=== PATIENT | male | born 1950 | race Caucasian/White ===

== ENCOUNTER 2017-11-22 12:30 | Emergency (ER) | payer BC ==
[2017-11-22 14:01] VITALS: BP 109/47
--- NOTE | 2017-11-22 15:11 | UC ---
UC General HPI - HPI Summary HPI Summary: pt is c/o sinus congestion, throat tickle and cough with bodyqaches x 5 days with no improvement. he denies any cp, sob, hx lung disease - History of Current Complaint Chief Complaint: UCRespiratory Stated Complaint: COUGH, SINUSES Time Seen by Provider: 11/22/17 14:56 Hx Obtained From: Patient Onset/Duration: Gradual Onset Timing: Constant Pain Intensity: 0 Associated Signs & Symptoms: Positive: Cough. Negative: Chest Pain, Diarrhea, Dysuria, Fever, SOB, Wheezing Similar Episode/Dx as: sinus infection and frequent secondary lung infection with both needing antibiotics - Allergy/Home Medications Allergies/Adverse Reactions: Allergies Allergy/AdvReac Type Severity Reaction Status Date / Time No Known Allergies Allergy Verified 11/22/17 13:53 Home Medications: Home Medications Furosemide TAB* [Lasix TAB*] 20 mg PO BID 11/22/17 [History Confirmed 11/22/17] Magnesium 30 mg PO DAILY 11/22/17 [History Confirmed 11/22/17] Montelukast Sodium TAB* [Singulair 10 MG TAB*] 10 mg PO DAILY 11/22/17 [History Confirmed 11/22/17] Multivitamin [Multivitamins] 1 cap PO DAILY 11/22/17 [History Confirmed 11/22/17 ] Nadolol TAB* [Corgard TAB*] 40 mg PO DAILY 11/22/17 [History Confirmed 11/22/17] Pantoprazole TAB (NF) [Protonix TAB (NF)] 20 mg PO BID 11/22/17 [History Confirmed 11/22/17] PMH/Surg Hx/FS Hx/Imm Hx Previously Healthy: No - fatty liver GI/ History: Ulcer - Surgical History Surgical History: Yes Surgery Procedure, Year, and Place: hernia. rhinoplasty. tonsilectomy - Family History Known Family History: Positive: Other - noncontributing - Social History Occupation: Retired Lives: With Family Alcohol Use: None Substance Use Type: None Smoking Status (MU): Never Smoked Tobacco Review of Systems Constitutional: Negative, Other - bodyaches Skin: Negative Eyes: Negative ENT: Sore Throat, Nasal Discharge, Sinus Congestion, Sinus Pain/Tenderness Respiratory: Negative, Cough Cardiovascular: Negative Gastrointestinal: Negative Genitourinary: Negative Motor: Negative Neurovascular: Negative Musculoskeletal: Negative Neurological: Negative Psychological: Negative Is Patient Immunocompromised?: No All Other Systems Reviewed And Are Negative: Yes Physical Exam Triage Information Reviewed: Yes Appearance: Well-Appearing Vital Signs: Initial Vital Signs Temp 98.8 F 11/22/17 13:55 Pulse 59 11/22/17 13:55 Resp 20 11/22/17 13:55 BP 109/47 11/22/17 13:55 Pulse Ox 98 11/22/17 13:55 Vital Signs Reviewed: Yes Eye Exam: Normal ENT: Positive: Pharynx normal, Nasal congestion, Nasal drainage - yellow, TMs normal, Sinus tenderness - maxillary Neck: Positive: Supple, Nontender, No Lymphadenopathy Respiratory: Positive: Chest non-tender, Lungs clear, Normal breath sounds Cardiovascular: Positive: RRR, No Murmur Abdomen Description: Positive: Nontender, Soft Bowel Sounds: Positive: Present Musculoskeletal: Positive: No Edema Neurological: Positive: Alert Psychological: Positive: Age Appropriate Behavior Skin Exam: Normal Diagnostics - Laboratory Diagnostic Studies Completed/Ordered: rapid flu=neg Course/Dx - Course Course Of Treatment: rapid flu=neg. will tx for sinusitis with augmentin - Differential Dx - Multi-Symptom Provider Diagnoses: sinusitis Discharge - Discharge Plan Condition: Stable Disposition: HOME Prescriptions: Amoxicillin/Clavulanate TAB* [Augmentin TAB 875*] 875 mg PO BID 10 Days #20 tab Patient Education Materials: Sinusitis (ED) Referrals: Florence Nagy MD [Primary Care Provider] - 7 Days
== END 2017-11-22 16:20 | disposition home or self-care (01) ==
LOC: UCCORT 12:30
DX: J32.9 Chronic sinusitis, unspecified (principal)
CPT/HCPCS: 87502; 99202; G0463